=== PATIENT | male | born 1960 | race Caucasian/White ===

== ENCOUNTER 2020-11-18 13:03 | Day surgery (SDC) | payer MEDICARE ==
[~2020-11-18 13:03] MED LIST: ASPI81EC PO; LABE100 PO; LISI20 PO; LOVA20 PO; MULVITMINE PO; SPIHYD PO
[2020-11-18 15:00] LABS: Automated BF RBC Count 0.115 M/mm3 (0-0); Automated BF WBC Count 4.473 K/mm3 (0-999); Body Fluid WBC Count 4473 /mm3 (0-999); RBC Count, Body Fluid 115000 /mm3 (0-0)
[2020-11-18 15:14] LABS: Glucose, Body Fluid 91 mg/dL; Lactate Dehydrogenase, Body Fl 312 U/L
[2020-11-18 15:28] LABS: Total Cell Count, Body Fluid 100; pH, Body Fluid 7.9
[2020-11-18 15:29] LABS: Appearance, Body Fluid Bloody (Clear); Color, Body Fluid Red (None-Yellow)
== END 2020-11-18 22:42 | disposition home or self-care (01) ==
LOC: US 13:03
PROVIDERS: Nurse Practitioner Family
DX: J90 Pleural effusion, not elsewhere classified (principal); J43.9 Emphysema, unspecified; K57.30 Diverticulosis of large intestine without perforation or abscess without bleeding
CPT/HCPCS: 32555; 71250; 82945; 83615; 83986; 89051